=== PATIENT | male | born 1990 | race African-American/Black ===

== ENCOUNTER 2017-03-03 21:06 | Emergency (ER) | payer SELFPAY ==
[~2017-03-03] VITALS: Ht 175.3 cm; Wt 58.6 kg
[2017-03-03 21:09] VITALS: BP 90/62; PULSE 98; TEMP 98.9
== END 2017-03-03 22:15 | disposition home or self-care (01) ==
LOC: COL.ER 21:06
DX: S63.502A Unspecified sprain of left wrist, initial encounter (principal); X50.0XXA Overexertion from strenuous movement or load, initial encounter; Y92.89 Other specified places as the place of occurrence of the external cause